=== PATIENT | male | born 1955 | race Caucasian/White ===

== ENCOUNTER 2021-04-22 12:38 | Outpatient (CLI) | payer MEDICARE, SELFPAY ==
--- NOTE | ~2021-04-22 | XR_ITS ---
EXAMINATION: XR abdomen/kub 1V DATE: 04/22/2021 13:07 INDICATION: Microscopic hematuria. TECHNIQUE: A supine view of the abdomen on 2 radiographs was obtained. COMPARISON: CT abdomen and pelvis 04/22/2021 FINDINGS: There are no dilated loops of bowel. There are phleboliths in the pelvis. There are 7 mm an d 6 mm stones in right kidney. Surgical clips in the right upper quadrant are likely from cholecystec tania. IMPRESSION: 1. Right kidney stones. Reviewed, dictated and finalized at location A. NG MACHINE SET UP OPERATOR IMPRESSION: 1. Right kidney stones.
--- NOTE | ~2021-04-22 | CT_ITS ---
EXAMINATION: CT abdomen pelvis wo/w con DATE: 04/22/2021 13:57 INDICATION: Microscopic hematuria. TECHNIQUE: Computed tomography (CT) of the abdomen and pelvis was performed without and with intraven ous contrast using a total of 130 mL Omnipaque-350 intravenous contrast with a double-bolus technique for simultaneous opacification of the renal parenchyma and renal collecting system. Automated exposu re control and iterative reconstruction technique were employed. The dose-length product was 1952.21 mGy-cm. COMPARISON: Abdomen MRI 12/07/2007 FINDINGS: The visualized portions of the lung bases demonstrate mild atelectasis. A calcified left lung nodule is consistent with old granulomatous disease. No pleural effusion. The heart size is normal. There ar e coronary artery calcifications. There are changes of coronary artery bypass grafting. No pericardia l effusion. The liver and spleen are normal. There are changes of cholecystectomy. The pancreas and a drenal glands are normal. There are cysts in the kidneys measuring up to 5.8 cm on the right. There a re 7 mm and 6 mm stones in right kidney. There is a parenchymal calcification in left kidney. The pro state is moderately enlarged. Right ureter is not well opacified distally. The ureters are normal. Th ere is diverticulosis of the colon without evidence of diverticulitis. The appendix is not visualized . There are no pathologically enlarged lymph nodes. There is no free intraperitoneal fluid. There is severe lumbar spondylosis. IMPRESSION: 1. 7 mm and 6 mm stones in right kidney. Reviewed, dictated and finalized at location A. RBOAT CAPTAIN
[2021-04-22 13:33] LABS: Estimated Glomerular Filt Rate 60
== END 2021-04-22 12:39 | disposition home or self-care (01) ==
LOC: ANHIMG 12:50
PROVIDERS: PCP Family Medicine; Visit Provider Urology
DX: R31.29 Other microscopic hematuria (principal); N20.0 Calculus of kidney
CPT/HCPCS: 74018; 74178; Q9967

== ENCOUNTER 2021-06-03 08:05 | Outpatient (CLI) | payer MEDICARE, SELFPAY ==
[2021-06-03 09:42] LABS: INR 1.1; Prothrombin Time 13.9 Seconds (11.1-14.7)
[2021-06-03 09:43] LABS: Partial Thromboplastin Time 28.9 SECONDS (22.3-36.8)
== END 2021-06-03 08:06 | disposition home or self-care (01) ==
LOC: ANHSURGERY 08:12
PROVIDERS: PCP Family Medicine; Visit Provider Urology
DX: Z01.818 Encounter for other preprocedural examination (principal); N20.0 Calculus of kidney
CPT/HCPCS: 36415; 85610; 85730; 87086